=== PATIENT | male | born 1990 | race African-American/Black ===

== ENCOUNTER 2017-06-05 12:39 | Emergency (ER) | payer MEDICAID ==
--- NOTE | 2017-06-05 13:06 | CPEKG ---
Heart Rate: 63 RR Interval: 952 P-R Interval: 136 QRSD Interval: 94 QT Interval: 384 QTC Interval: 394 P [place]: 28 QRS [place]: 59 T Wave [place]: 48 EKG Severity - NORMAL ECG - EKG Impression: SINUS RHYTHM Electronically Signed By: Meredith Lepe 05-Jun-2017 15:04:49
[2017-06-05 13:14] LABS: % IMMATURE GRANULYOCYTES 0.1 % (0.0-1.1); ABSOLUTE IMMATURE GRANULOCYTES 0.01 10^3/uL (0.00-0.10); ADD DIFF? NO; ADD MORPH? NO; ADD SCAN? NO; ATYPICAL LYMPHOCYTE FLAG 0 (0-99); FRAGMENT RBC FLAG 0 (0-99); HEMATOCRIT 51.8 % (40.0-51.0); HEMOGLOBIN 18.2 g/dL (13.7-17.5); LEFT SHIFT FLG 0 (0-99); LIPEMIA HEMOLYSIS FLAG 90 (0-99); MEAN CELL HEMOGLOBIN 31.1 pg (27.9-34.1); MEAN CELL HEMOGLOBIN CONCENTR. 35.1 g/dL (32.4-36.7); MEAN CELL VOLUME 88.4 fL (81.5-99.8); MEAN PLATELET VOLUME 9.5 fL (8.7-11.7); PLATELET CLUMPS FLAG 0 (0-99); PLATELET COUNT 258 10^3/uL (150-400); RED BLOOD CELL COUNT 5.86 10^6/uL (4.40-6.38); RED CELL DISTRIBUTION WIDTH 10.9 % (11.5-15.2)
[2017-06-05 13:32] LABS: ANION GAP 14 mEq/L (8-16); CALCIUM 10.2 mg/dL (8.5-10.4); CARBON DIOXIDE 26 mEq/l (22-31); CHLORIDE 101 mEq/L (97-110); CREATININE 0.9 mg/dL (0.7-1.3); GLOMERULAR FILTRATION RATE > 60; GLUCOSE 81 mg/dL (70-100); POTASSIUM 4.6 mEq/L (3.5-5.2); SODIUM 141 mEq/L (134-144)
[2017-06-05] MEDS ORDERED: MAG HYDROX/AL HYDROX/SIMETH 30 ML UDCUP PO ONE (13:34)
[2017-06-05] MEDS ORDERED: HYOSCYAMINE SULFATE 0.125 MG TAB PO ONE (13:34)
[2017-06-05] MEDS ORDERED: LIDOCAINE 2% VISCOUS 15 ML UDCUP PO ONE (13:34)
--- NOTE | 2017-06-05 13:42 | EDPHY ---
H & P Time Seen by Provider: 06/05/17 12:58 HPI/ROS: CHIEF COMPLAINT: Chest pain HISTORY OF PRESENT ILLNESS: 26-year-old male presents with chest pressure. Last evening, he was out at a bar, had a drink and while drinking had sudden onset of sharp and stabbing central chest pressure, associated with shortness of breath and dizziness. The symptoms waxed and waned throughout the evening, but did not completely resolve. He slept well last night, but awoke with similar chest pain. The chest pain today is constant and described as a moderate pressure. No associated shortness of breath. The pain does not increase with exertion. He denies cocaine or methamphetamine use. No prior similar symptoms. Cardiac risk factors negative. Nonsmoker; no family history; no hypertension, diabetes or hypercholesterolemia. REVIEW OF SYSTEMS: Constitutional: No fever, no recent illness Eyes: No visual changes ENT: No sore throat Respiratory: No cough Gastrointestinal: no vomiting, no abdominal pain Genitourinary: no dysuria Musculoskeletal: No leg pain or swelling Skin: No rash Neurological: No headache, no weakness Psychiatric: No depression Past Medical/Surgical History: Denies Social History: Occasional marijuana Smoking Status: Never smoked Physical Exam: General Appearance: Alert, pleasant Eyes: Pupils equal and round, no conjunctival pallor or injection ENT, Mouth: Mucous membranes moist Neck: Normal inspection Respiratory: Normal respiratory rate, no chest wall tenderness, lungs are clear to auscultation Cardiovascular: Regular rate and rhythm Gastrointestinal: Abdomen is soft and nontender Neurological: A&O, nonfocal, normal gait Skin: Warm and dry, no rash Extremities: Nontender, no pedal edema Psychiatric: Mood and affect normal Constitutional: Initial Vital Signs Temperature (C) 36.9 C 06/05/17 12:47 Heart Rate 76 06/05/17 12:47 Respiratory Rate 16 06/05/17 12:47 Blood Pressure 142/88 H 06/05/17 12:47 O2 Sat (%) 96 06/05/17 12:47 O2 Delivery Mode Room Air Allergies/Adverse Reactions: No Known Allergies Allergy (Verified 06/05/17 12:47) Home Medications: Medication Instructions Recorded NK [No Known Home Meds] 09/01/14 Medical Decision Making - Diagnostics EKG Interpretation: EKG interpreted by me reveals normal sinus rhythm, rate 63, J point elevation, no ST or T segment changes. Imaging Results: Chest x-ray independently reviewed by me reveals no acute disease. ED Course/Re-evaluation: This patient presents with atypical chest pain. After careful consideration and evaluation, I find no evidence of acute coronary syndrome. The patient has no risk factors for coronary disease, normal EKG and normal studies. In addition, I feel that I can safely exclude pulmonary embolism, with normal vital signs, normal oxygen saturation and normal studies. In addition there is no evidence of pneumothorax, pneumonia, aortic dissection. GI cocktail given for possible esophageal spasm; no relief in pain. Likely musculoskeletal etiology of pain. Toradol 15 mg IV given prior to discharge. Patient was strongly encouraged to follow up with his primary care physician. He will return to the emergency department for worsening symptoms or any concerns. Differential Diagnosis: Differential diagnosis includes though it is not limited to pneumonia, pneumothorax, pulmonary embolism, aortic dissection, pericarditis, acute coronary syndrome, GERD, esophagitis. - Data Points Laboratory Results: Laboratory Results 06/05/17 13:00 06/05/17 13:00 Medications Given: Discontinued Medications Al Hydroxide/Mg Hydroxide (Maalox Susp) 30 ml PO ONCE ONE Stop: 06/05/17 13:35 Last Admin: 06/05/17 13:39 Dose: 30 ml Hyoscyamine Sulfate (Levsin, Hyomax-Sl) 0.25 mg PO ONCE ONE Stop: 06/05/17 13:35 Last Admin: 06/05/17 13:39 Dose: 0.25 mg Ketorolac Tromethamine (Toradol) 15 mg IVP EDNOW ONE Stop: 06/05/17 14:09 Last Admin: 06/05/17 14:20 Dose: 15 mg Lidocaine (Lidocaine 2% Viscous) 15 ml PO ONCE ONE Stop: 06/05/17 13:35 Last Admin: 06/05/17 13:39 Dose: 15 ml Departure - Departure Disposition: Home, Routine, Self-Care Clinical Impression: Chest pain Qualifiers: Chest pain type: precordial pain Qualified Code(s): R07.2 - Precordial pain Condition: Good Instructions: Chest Pain (ED) Additional Instructions: Ibuprofen 600 mg 3 times daily while the pain persists. Return for worsening pain, shortness of breath or any concerns. Referrals: John García MD [Medical Doctor] - 2-3 days, call for appt.
[2017-06-05] MEDS ORDERED: KETOROLAC 15 MG/1 ML SDV IVP ONE (14:08)
[2017-06-05 15:01] VITALS: BP 119/79; PULSE 64; RESP 18; TEMP 98.8; O2SAT 94
== END 2017-06-05 15:03 | disposition home or self-care (01) ==
DX: R07.2 Precordial pain (principal)
CPT/HCPCS: 96374; J1885

== ENCOUNTER 2017-06-13 21:54 | Inpatient (IN) | payer MEDICAID ==
--- NOTE | 2017-06-13 22:05 | EDPHY ---
H & P - Personal History Tetanus Vaccine Date: 2011 - Medical/Surgical History Hx Asthma: No Hx Chronic Respiratory Disease: No Hx Diabetes: No Hx Cardiac Disease: No Hx Renal Disease: No Hx Cirrhosis: No Hx Alcoholism: No Hx HIV/AIDS: No Hx Splenectomy or Spleen Trauma: No Other PMH: denies - Social History Smoking Status: Never smoked HPI/ROS: Chief Complaint: Intentional overdose HPI: A 26-year-old male states that he took about 27, 30 mg Percocet tablets as well as some Xanax as a suicide attempt tonight. Patient states he was trying to "end some pain ". He does state he has a history of a suicide attempt in the past. Denies any other ingestions. On EMS arrival patient was awake and alert. During the course of transport patient became more somnolent and had a brief apneic episode. He received 0.5 mg of naloxone IV EN route. He is now awake alert and answering questions. Denies past medical history. No recent injuries or traumas. ROS: 10 point Review of Systems is negative except as noted in the HPI. PMH: Denies Social History: No smoking, occasional alcohol, occasional marijuana Family History: non-contributory Physical Exam: Gen: Awake, drowsy, maintaining airway HEENT: Nose: no rhinorrhea Eyes: Pupils are 1-2 mm bilaterally, EOMI Mouth: Moist mucosa Neck: Supple, no JVD Chest: nontender, lungs clear to auscultation Heart: S1, S2 normal, no murmur Abd: Soft, non-tender, no guarding Back: no CVA tenderness, no midline tenderness Ext: no edema, non-tender Skin: no rash Neuro: CN II-XII intact, Sensation grossly intact, Strength 5/5 in bilateral upper and lower extremities (Dominguez Fraser) Constitutional: Initial Vital Signs Heart Rate 99 06/13/17 21:58 Respiratory Rate 10 L 06/13/17 21:58 Blood Pressure 157/87 H 06/13/17 21:58 O2 Sat (%) 99 06/13/17 21:58 O2 Delivery Mode Nasal Cannula O2 (L/minute) 1 Allergies/Adverse Reactions: No Known Allergies Allergy (Verified 06/05/17 12:47) Home Medications: Medication Instructions Recorded NK [No Known Home Meds] 09/01/14 Medical Decision Making ED Course/Re-evaluation: 07:00 I assumed care of this patient from Dr. Fraser at shift change. Patient is on M1 hold, being treated following intentional polypharm overdose. Acetaminophen negative. He has been on Narcan drip, titrated to effectiveness since about 1:00 this morning. Plan to observe, taper Narcan as needed. 08:00 This patient continues to require Narcan drip. He barely rouses to painful stimuli. Plan to admit for continued management. 09:03 Consulted with hospitalist service. Dr. Tsang accepts admission to ICU. (Melissa Carrasco) 26-year-old male with poly forearm ingestion including opiates. Patient has pinpoint pupils. He responded well to Narcan. Will continue to evaluate. Will re-dose Narcan as needed. Patient again somnolent. Every does 0.5 mg of Narcan with good results. Will start him on a Narcan drip at this time to allow him to metabolize his narcotics. Patient has been placed on M1 hold by the police. 0700. Patient signed out to Dr. Carrasco pending improvement in his mental status and mental health evaluation. Narcan drip has been discontinued at this point. (Dominguez Fraser) - Data Points Laboratory Results: Laboratory Results 06/13/17 22:05 06/13/17 22:05 06/14/17 02:10 Total Bilirubin 0.4 mg/dL mg/dL (0.1-1.4) Conjugated Bilirubin 0.2 mg/dL mg/dL (0.0-0.5) Unconjugated Bilirubin 0.2 mg/dL mg/dL (0.0-1.1) AST 23 IU/L IU/L (17-59) ALT 38 IU/L IU/L (21-72) Alkaline Phosphatase 44 IU/L IU/L (38-126) Creatine Kinase 114 IU/L IU/L (0-224) Total Protein 6.0 g/dL L g/dL (6.3-8.2) Albumin 3.3 g/dL L g/dL (3.5-5.0) Medications Given: Chlorhexidine Gluconate (Peridex) 15 ml PO Q12@08,20 JULIO Stop: 12/11/17 19:59 Last Admin: 06/14/17 19:55 Dose: 15 ml Naloxone HCl 4 mg/ Sodium (Chloride) 250 mls @ 0 mls/hr IV CONT JULIO; Per Protocol PRN Reason: Protocol Stop: 12/11/17 14:59 Last Admin: 06/14/17 15:26 Dose: 250 mls Famotidine/Sodium Chloride (Pepcid 20 Mg (Premix)) 50 mls @ 200 mls/hr IV Q12HRS JULIO Stop: 12/11/17 20:59 Last Admin: 06/14/17 20:05 Dose: 50 mls Discontinued Medications Flumazenil (Romazicon) 0.2 mg IVP ONCE ONE Stop: 06/14/17 10:48 Last Admin: 06/14/17 10:59 Dose: 0.2 mg Flumazenil (Romazicon) 0.3 mg IVP ONCE ONE Stop: 06/14/17 17:42 Last Admin: 06/14/17 18:17 Dose: 0.3 mg Naloxone HCl 2 mg/ Dextrose 505 mls @ 0 mls/hr IV EDNOW ONE; Per Protocol PRN Reason: Protocol Stop: 06/13/17 23:31 Last Admin: 06/13/17 23:22 Dose: 505 mls Naloxone HCl 2 mg/ Dextrose 505 mls @ 0 mls/hr IV CONT JULIO; Per Protocol PRN Reason: Protocol Stop: 12/11/17 00:59 Last Admin: 06/14/17 13:39 Dose: 505 mls Sodium Chloride (Ns) 1,000 mls @ 3,000 mls/hr IV ONCE ONE Stop: 06/14/17 11:18 Last Admin: 06/14/17 11:00 Dose: 1,000 mls Naloxone HCl (Narcan) 0.5 mg IVP EDNOW ONE Stop: 06/13/17 22:36 Last Admin: 06/13/17 22:35 Dose: 0.5 mg Departure - Departure Disposition: [facility] Clinical Impression: Intentional opiate overdose Qualifiers: Encounter type: initial encounter Qualified Code(s): T40.602A - Poisoning by unspecified narcotics, intentional self-harm, initial encounter Condition: Serious
--- NOTE | 2017-06-13 22:06 | CPEKG ---
Heart Rate: 81 RR Interval: 741 P-R Interval: 148 QRSD Interval: 88 QT Interval: 336 QTC Interval: 390 P [place]: 51 QRS [place]: 51 T Wave [place]: 52 EKG Severity - NORMAL ECG - EKG Impression: SINUS RHYTHM Electronically Signed By: Dominguez Fraser 14-Jun-2017 06:35:52
[2017-06-13 22:14] LABS: % IMMATURE GRANULYOCYTES 0.2 % (0.0-1.1); ABSOLUTE IMMATURE GRANULOCYTES 0.02 10^3/uL (0.00-0.10); ADD DIFF? NO; ADD MORPH? NO; ADD SCAN? NO; ATYPICAL LYMPHOCYTE FLAG 0 (0-99); FRAGMENT RBC FLAG 0 (0-99); HEMATOCRIT 49.6 % (40.0-51.0); HEMOGLOBIN 17.4 g/dL (13.7-17.5); LEFT SHIFT FLG 0 (0-99); LIPEMIA HEMOLYSIS FLAG 90 (0-99); MEAN CELL HEMOGLOBIN 30.7 pg (27.9-34.1); MEAN CELL HEMOGLOBIN CONCENTR. 35.1 g/dL (32.4-36.7); MEAN CELL VOLUME 87.5 fL (81.5-99.8); MEAN PLATELET VOLUME 9.2 fL (8.7-11.7); PLATELET CLUMPS FLAG 10 (0-99); PLATELET COUNT 253 10^3/uL (150-400); RED BLOOD CELL COUNT 5.67 10^6/uL (4.40-6.38)
[2017-06-13 22:29] LABS: ANION GAP 15 mEq/L (8-16); CALCIUM 9.6 mg/dL (8.5-10.4); CARBON DIOXIDE 26 mEq/l (22-31); CHLORIDE 101 mEq/L (97-110); CREATININE 1.2 mg/dL (0.7-1.3); ETHANOL SERUM < 10 mg/dL (0-10); GLOMERULAR FILTRATION RATE > 60; GLUCOSE 114 mg/dL (70-100); POTASSIUM 4.1 mEq/L (3.5-5.2); SALICYLATE < 1.0 mg/dL (2.0-20.0); SODIUM 142 mEq/L (134-144)
[2017-06-13] MEDS ORDERED: NALOXONE HCL 0.4 MG/ML INJ ONE (22:34)
[2017-06-13] MEDS ORDERED: NALOXONE HCL 0.4 MG/ML INJ IVP ONE (22:35)
[2017-06-13] MEDS ORDERED: NALOXONE HCL 2 MG in D5W 500 ML IV SCH (22:45)
[2017-06-13] MEDS ORDERED: NALOXONE HCL 2 MG in D5W 500 ML IV ONE (23:30)
[2017-06-14] MEDS: NALOXONE HCL 2 MG in D5W 500 ML IV SCH ×2 (05:43→13:39)
[2017-06-14] MEDS ORDERED: ONDANSETRON 4 MG/2 ML VIAL IVP PRN (09:13)
[2017-06-14] MEDS ORDERED: ACETAMINOPHEN 325 MG TAB PO PRN (09:13)
[2017-06-14] MEDS ORDERED: ONDANSETRON DISINTEGRATING 4 MG TAB PO PRN (09:13)
[2017-06-14 09:18] LABS: BASE EXCESS 0.4 mEq/L (-2.5-2.5); BICARBONATE 28 mEq/L (22-26); MEASURED OXYGEN SATURATION 97 % (92-95); PCO2 56 mmHg (34-38); PO2 95 mmHg (65-75); TCO2 29 mEq/L (23-27)
[2017-06-14] MEDS ORDERED: FLUMAZENIL 0.5 MG/5 ML MDV IVP ONE ×2 (10:47→17:41)
[2017-06-14] MEDS ORDERED: NS 1,000 ML IV ONE (10:59)
--- NOTE | 2017-06-14 11:21 | GHP ---
[f rep st] HISTORY AND PHYSICAL DATE OF ADMISSION: 06/14/2017 CHIEF COMPLAINT: Opioid overdose. HISTORY OF PRESENT ILLNESS: A 26-year-old male who presented to the emergency department on 06/13/2017 by EMS. Patient reportedly intentionally took 27 narcotic containing tablets, we believe were Percocet, as well as some Xanax. Patient additionally took Xanax. He reports to the emergency department, on initial evaluation, that he intentionally took these tablets to end the pain. Upon arrival to the intensive care unit, patient denies any headache. Reports feeling very sleepy. Denies vision changes. Denies chest pain, shortness of breath. Does report stomach upset. No vomiting. Denies dysuria, hematuria, myalgias, or arthralgias. PAST MEDICAL HISTORY: None. SOCIAL HISTORY: Patient endorses alcohol use, which occasionally is daily. Denies tobacco. Denies illicit drugs. Reports marijuana use. FAMILY HISTORY: He reports is negative for depression or suicide attempts. REVIEW OF SYSTEMS: A 10-point review of systems is negative with the exception of that reported in the HPI. PHYSICAL EXAMINATION: VITAL SIGNS: Blood pressure 110/69, heart rate 61, respiratory rate 9, saturating 98% on 1 L, 36.3. GENERAL: This is a young healthy-appearing male, quite somnolent on examination. HEENT: Notable for dry mucous membranes. Eye exam is negative for any icterus. CARDIAC: Patient is regular rate and rhythm. PULMONARY: Diminished breath sounds at the bases, otherwise clear. GASTROINTESTINAL: Positive bowel sounds. ABDOMEN: Soft and nontender. MUSCULOSKELETAL: Negative for any lower extremity edema. SKIN: Negative for any rashes. NEUROLOGIC: The patient is arousable and will answer questions but immediately falls back asleep. PSYCHIATRIC: Has a flat affect on my examination. DATA: White count 10.0, hematocrit 49.5, platelets of 253. Creatinine of 1.2, recent baseline 0.9. Salicylates are less than 1. Acetaminophen less than 10, rechecked at 4 hours remained less than 10. EKG, which I personally reviewed and interpreted, shows sinus rhythm. Normal axis. Normal intervals. RSR prime morphology V1, V2. No acute ST-T changes. EKG from 06/05 in comparison is similar. ASSESSMENT AND PLAN: This is a 26-year-old male with intentional opioid overdose. 1. Intentional suicide attempt. Patient does have a history of depression in the past with reported previous attempts. M1 hold has been placed in the emergency department. Will medically stabilized and then consult Psychiatry for additional psychiatric care. 2. Opioid overdose. Patient is currently on a Narcan drip. Remains quite somnolent with low respiratory rates. Patient reportedly took Xanax, although we do not know quantity ingested. Will use a single dose of flumazenil to see if we can improve his somnolence and unresponsiveness. Patient will remain on IV fluids while unsafe to take p.o. Will additionally check another Tylenol level this afternoon, as again, we cannot quantify exactly what tablets or how many he took. 3. CHANEL - creatinine 1.2 (baseline 0.9) suspect secondary to hypovolemia- NS bolus and follow. 4. Prophylaxis with Lovenox. DIET: N.p.o. currently as the patient is unsafe to swallow. DISPOSITION: I expect greater than 2 midnights. Patient is requiring a Narcan drip currently to maintain a normal respiratory rate. Will require ICU level monitoring prior to psych evaluation. Discussed the case with the emergency room physician. Patient will be triaged to the ICU for care. /[id number]/MODL MTDD
--- NOTE | 2017-06-14 12:58 | ASMTCMCOM ---
CM Note CM Note Notes: 26 year old male admitted for suicide attempt intentional opioid OD. Has a hx of Depression and other suicide attempts. Patient's mother contacted and coming from [place]. Patient made the remark that he "wanted to end the pain". Not sure if that's physical or emotional pain? Patient will have a psych eval when medically cleared. Patient placed on an M1 Hold. Date Signed: 06/14/2017 12:58 PM Electronically Signed By:Batool Escudero LCSW
[2017-06-14] MEDS ORDERED: NS IV SCH ×2 (15:00)
[2017-06-14] MEDS ORDERED: NALOXONE HCL IV SCH ×2 (15:00)
[2017-06-14 15:18] LABS: ALBUMIN 3.3 g/dL (3.5-5.0); BILIRUBIN,TOTAL 0.4 mg/dL (0.1-1.4); BILIRUBIN-CONJUGATED 0.2 mg/dL (0.0-0.5); BILIRUBIN-UNCONJUGATED 0.2 mg/dL (0.0-1.1)
[2017-06-14 15:31] LABS: PHENCYCLIDINE URINE BCH < 6 ng/ml (NEGATIVE); PHENCYCLIDINE URINE BCH NEGATIVE (NEGATIVE); TETRAHYDROCANNABINOL URINE 40 ng/mL (NEGATIVE); TETRAHYDROCANNABINOL URINE NEGATIVE (NEGATIVE)
--- NOTE | 2017-06-14 16:05 | PDMN ---
Medical Necessity Medical necessity: Pt meets IP criteria per MD; est los >2 mn for ongoing management/tx of intentional suicide attempt/opioid overdose & CHANEL; admit to ICU for Narcan drip, IVFs, further monitoring & Psychiatric consult; hx depression; per H&P & order 06/14/17
[2017-06-14] MEDS ORDERED: PROPOFOL/EMULSION 1,000 MG/100 ML BOTTLE IV ONE (17:55)
[2017-06-14] MEDS: D5W NS 1,000 ML IV SCH (19:00)
--- NOTE | 2017-06-14 19:27 | HOSPPROG ---
Hospitalist Progress Note Assessment/Plan: CAlled bedside for critical respiratory condition - nursing reporting progressive somnolence with a marked depression in respiratory rate Nurse initiated bag/mask ventilation without resistance - BiPAP initiated RR 16 (set on BiPAP - saturation 100% BP 110/70 (60's) patient not responding to noxious stimulation RRR lung littlejohn clear to auscultation # Acute Respiratory distress presumed 2/2 respiratory depression with opiod overdose- narcan cady has been uptitrated throught the day without improvement - stat dose of flumazenil - ED called for emergent intubation - continue narcan gtt - mother contacted for emergency consent for ETT # Opiod/benzodiazepine overdose - remains unclear exactly what the patient took and what quantity - breif response to flumazenil - however continue use has risk of seizure - cont narcan - proceed with airway protection > 30 minutes bedside critical care time spent - active bedside critical care subsequently handed off to Objective: Vital Signs Temp Pulse Resp BP Pulse Ox 36.7 C 56 L 12 110/70 100 06/14/17 16:00 06/14/17 18:00 06/14/17 18:00 06/14/17 18:00 06/14/17 18:00 06/13/17 06/14/17 06/15/17 05:59 05:59 05:59 Intake Total 2058 Output Total 3236 Balance 159 ICD10 Worksheet Patient Problems: Problems Problem Status Onset Intentional opiate overdose Acute Chest pain Acute
[2017-06-14] MEDS: CHLORHEXIDINE GLUCONATE 15 ML UDL PO SCH (19:55)
[2017-06-14] MEDS ORDERED: SUCCINYLCHOLINE CHLORIDE*ANESTHESIA ONLY*200 MG/10 ML SYR IVP ONE (20:01)
[2017-06-14] MEDS ORDERED: ETOMIDATE 40 MG/20 ML INJ ONE (20:01)
[2017-06-14] MEDS: FAMOTIDINE 20 MG/NACL 50 ML IV SCH (20:05)
[2017-06-14 20:39] LABS: BASE EXCESS 1.5 mEq/L (-2.5-2.5); BICARBONATE 24 mEq/L (22-26); MEASURED OXYGEN SATURATION 99 % (92-95); PCO2 33 mmHg (34-38); PO2 148 mmHg (65-75); TCO2 25 mEq/L (23-27)
[2017-06-14 20:41] LABS: END TIDAL CO2 33; O2 CONCENTRATIION 50 % (0-100); P/F RATIO 296 RATIO; PATIENT RATE 12; PRESSURE SUPPORT 7; SIMV YES
--- NOTE | 2017-06-14 22:15 | EPPROC ---
Patient Problems: Problems Problem Status Onset Intentional opiate overdose Acute Chest pain Acute
--- NOTE | 2017-06-14 22:18 | EDPHY ---
ED Progress Note Narrative: Indication for the procedure was narcotic and benzodiazepine overdose with pending apnea. The patient was preoxygenated with 100% oxygen by face mask. The patient was sedated with 20 mg of IV etomidate and paralyzed with 200 mg of IV succinylcholine. The patient was orally endotracheally intubated under direct visualization with a 7.5 ETT. Tracheal intubation was confirmed with misting on the tube; breath sounds were auscultated equally bilaterally; appropriate color change with [place] CO2 detector, capnography waveform is appropriate, oxygen saturation after procedure is 100%. Chest X- ray shows ETT in good position. The procedure was performed by myself.
[2017-06-15] MEDS: PROPOFOL/EMULSION 100 ML IV SCH ×2 (03:45→21:48)
[2017-06-15 05:51] LABS: % IMMATURE GRANULYOCYTES 0.3 % (0.0-1.1); ABSOLUTE IMMATURE GRANULOCYTES 0.02 10^3/uL (0.00-0.10); ADD DIFF? NO; ADD MORPH? NO; ADD SCAN? NO; ATYPICAL LYMPHOCYTE FLAG 10 (0-99); FRAGMENT RBC FLAG 0 (0-99); HEMATOCRIT 40.7 % (40.0-51.0); HEMOGLOBIN 14.2 g/dL (13.7-17.5); LEFT SHIFT FLG 0 (0-99); LIPEMIA HEMOLYSIS FLAG 90 (0-99); MEAN CELL HEMOGLOBIN 31.2 pg (27.9-34.1); MEAN CELL HEMOGLOBIN CONCENTR. 34.9 g/dL (32.4-36.7); MEAN CELL VOLUME 89.5 fL (81.5-99.8); MEAN PLATELET VOLUME 9.3 fL (8.7-11.7); PLATELET CLUMPS FLAG 0 (0-99); PLATELET COUNT 191 10^3/uL (150-400); RED BLOOD CELL COUNT 4.55 10^6/uL (4.40-6.38); RED CELL DISTRIBUTION WIDTH 11.1 % (11.5-15.2)
[2017-06-15 06:15] LABS: ANION GAP 10 mEq/L (8-16); CALCIUM 8.3 mg/dL (8.5-10.4); CARBON DIOXIDE 22 mEq/l (22-31); CHLORIDE 110 mEq/L (97-110); CREATININE 0.8 mg/dL (0.7-1.3); GLOMERULAR FILTRATION RATE > 60; GLUCOSE 88 mg/dL (70-100); POTASSIUM 3.9 mEq/L (3.5-5.2); SODIUM 142 mEq/L (134-144)
[2017-06-15] MEDS: CHLORHEXIDINE GLUCONATE 15 ML UDL PO SCH ×2 (08:05→19:31)
[2017-06-15] MEDS ORDERED: ENOXAPARIN 40 MG/0.4 ML SYR SC SCH (09:00)
[2017-06-15] MEDS: FAMOTIDINE 20 MG/NACL 50 ML IV SCH ×2 (09:49→19:32)
[2017-06-15] MEDS: ENOXAPARIN 40 MG/0.4 ML SYR SC SCH (09:50)
--- NOTE | 2017-06-15 17:27 | HOSPPROG ---
Hospitalist Progress Note Assessment/Plan: # Acute hypoxic Respiratory failure 2/2 respiratory depression with opiod overdose- pt emergently intubated overnight - tolerating vent oxygen saturaions 100% on 40% Fio2- WBC normal today CXR (personally reviewed and interpreted) no infiltrates - cont ventilator support - dc narcan gtt as vented - does have moments of appropriate communication- hopeful we see improvement today # Opiod/benzodiazepine overdose - remains unclear exactly what the patient took and what quantity - brief response to flumazenil - however continue use has risk of seizure - cont vent support - cont supportive care # CHANEL - resolved after fluids # proph -lovenox, pepcid # diet NPO # dispo - on M1 hold will need psych eval after medically cleared I have discussed the case with RN -it is positive that the patient can follow simple commands on vent - cont supportive care Subjective: intubated overnight Objective: Vital Signs Temp Pulse Resp BP Pulse Ox 36.5 C 64 8 L 120/71 100 06/15/17 16:00 06/15/17 16:00 06/15/17 16:00 06/15/17 16:00 06/15/17 16:00 Laboratory Results 06/15/17 05:35 06/15/17 05:35 06/14/17 06/15/17 06/16/17 05:59 05:59 05:59 Intake Total 2973.1 Output Total 2275 325 Balance 698.1 -325 - Physical Exam Constitutional: appears nourished Eyes: anicteric sclera Ears, Nose, Mouth, Throat: other (ETT) Cardiovascular: regular rate and rhythym Respiratory: no respiratory distress Gastrointestinal: normoactive bowel sounds Genitourinary: no bladder fullness Skin: warm Musculoskeletal: No asymmetric calves Neurologic: No AAOx3 Psychiatric: other (sedated) Lymph, Heme, Immunologic: no cervical LAD ICD10 Worksheet Patient Problems: Problems Problem Status Onset Intentional opiate overdose Acute Chest pain Acute
[2017-06-15] MEDS: D5W NS 1,000 ML IV SCH (19:30)
--- NOTE | 2017-06-16 04:40 | GCON ---
[f rep st] CONSULTATION PULMONARY/CRITICAL CARE CONSULTATION DATE OF CONSULTATION: 06/15/2017 REASON FOR CONSULTATION: Drug overdose, acute respiratory failure. HISTORY: The patient is a 26-year-old gentleman, who presented to the emergency room on 06/13, broug ht in by the paramedics. He took a large amount of narcotics, apparently Percocet, as well as Xanax. He had decreased mental status on arrival to the emergency department. He was given Narcan by drip and admitted to the intensive care unit. He remained quite somnolent after his admission, and despi te the Narcan drip last night, had a respiratory rate of 4, was not protecting his airway, was increa singly somnolent, and was thus intubated by the ED physician. Because of the Xanax ingestion, he als o was tried on a single dose of Romazicon. He woke up partially, but only momentarily with this. It was not repeated. This was apparently an intentional overdose. He was not down for a long time. His mother was talkin g to him on the phone as he began to lose consciousness. She hung up and called 9-- immediately, a nd the paramedics arrived soon after that. There has been no evidence of anoxia. When he wakes up f rom his stupor at times, he is appropriate, follows commands, etc. This was an intentional suicide o verdose, and he is on an M1 hold. PAST MEDICAL HISTORY: Unremarkable. He apparently has not had previous suicide attempts. SOCIAL HISTORY: Unknown to me at this time. He apparently does drink alcohol occasionally, but not necessarily daily. Apparently illegal drug use is denied, however. That appears to be questionable. Does use marijuana. Employment status, school, etc., are unknown at this time. PHYSICAL EXAMINATION: GENERAL: Reveals a gentleman who is on the ventilator. He appears comfortabl e. He does wake up and responds to commands and questions. He is not over breathing the ventilator, which is set at 8. VITAL SIGNS: Blood pressure is approximately 120/70, heart rate 65 with sinus r hythm on the monitor. He is afebrile. On 40% FIO2, he is 100% saturated. Respiratory rate is 8. H EENT: Remarkable for the oral endotracheal tube. He has no NG/OG at this time. CHEST: Clear bilat erally. HEART: Regular in rate and rhythm. ABDOMEN: Soft, nontender. Bowel sounds are present. EXTREMITIES: Unremarkable for edema, cords, or tenderness. A Ochoa catheter is in place. Urine out put is good. NEUROLOGIC: Nonfocal. He moves all extremities equally to commands, answers simple qu estions. DATABASE: Chest x-ray post intubation shows no infiltrates. Endotracheal tube is in good position. Laboratory: Arterial blood gas post intubation showed a pH of 7.48, pCO2 of 33, and pO2 of 148, on r ate of 12, 600, and 5 of PEEP. White blood cell count 7500, hematocrit 40.7, platelets are normal. Chemistries are within normal limits, as are liver function studies. Urine tox screen on admission w as positive for benzodiazepines, otherwise, negative, including opiates, acetaminophen, salicylates, THC, and alcohol. ASSESSMENT: 1. Polysubstance overdose: He apparently took a large amount of opiates, possibly Percocet, possibl y other opiates? He also took Xanax, amount unknown. This has resulted in prolonged somnolence. Th ere is no evidence of an anoxic injury, fortunately. Because of persistent somnolence and a decreasi ng respiratory rate, he was intubated and remains on the ventilator. 2. Acute respiratory failure secondary to drug overdose: Please see the comments above. He is stab le on the ventilator, not over breathing the vent with a respiratory rate set at 8. 3. Suicide attempt: He is on an M1 hold. 4. Metabolic: No issues identified. 5. Prophylaxis: He is on enoxaparin and famotidine. PLAN AND RECOMMENDATIONS: The patient will be kept in the intensive care unit. Ventilatory support will be maintained until he improves enough and starts over breathing the ventilator, does not fall b ack asleep, etc. His M1 hold will be maintained. Laboratory will be followed. Further plans and recommendations will be made based on his progress over the next 12-24 hours. /[id number]/MODL
[2017-06-16 06:09] LABS: HEMATOCRIT 39.5 % (40.0-51.0); HEMOGLOBIN 13.5 g/dL (13.7-17.5); MEAN CELL HEMOGLOBIN 30.3 pg (27.9-34.1); MEAN CELL HEMOGLOBIN CONCENTR. 34.2 g/dL (32.4-36.7); MEAN CELL VOLUME 88.8 fL (81.5-99.8); RED BLOOD CELL COUNT 4.45 10^6/uL (4.40-6.38); RED CELL DISTRIBUTION WIDTH 10.7 % (11.5-15.2)
[2017-06-16] MEDS: CHLORHEXIDINE GLUCONATE 15 ML UDL PO SCH (10:49)
[2017-06-16] MEDS: FAMOTIDINE 20 MG/NACL 50 ML IV SCH (10:50)
--- NOTE | 2017-06-16 11:22 | ASMTCMCOM ---
CM Note CM Note Notes: A question re: a 24 hour wait after extubation to med clear a patient for psych eval came up in rounds. Spoke with DIPIKA Urena, who states there are no requirements like this and the can determine patient med clear without a 24 hour wait after extubation. Patient's nurse was informed. Patient was extubated this morning and will most likely med clear this afternoon. CM will follow. Date Signed: 06/16/2017 11:22 AM Electronically Signed By:Jayleen Thomas LCSW
[2017-06-16] MEDS: ENOXAPARIN 40 MG/0.4 ML SYR SC SCH (11:56)
--- NOTE | 2017-06-16 13:48 | HOSPPROG ---
Hospitalist Progress Note Assessment/Plan: # Acute hypoxic Respiratory failure 2/2 respiratory depression with opioid overdose- pt emergently intubated 06/14 - oxygen saturations 100% on 40% Fio2- WBC normal today CXR (personally reviewed and interpreted) no infiltrates - anticipate extubation today # Opiod/benzodiazepine overdose - remains unclear exactly what the patient took and what quantity - brief response to flumazenil - however continue use has risk of seizure - anticipate extubation - psychiatry eval when medically clear # CHANEL - resolved after fluids- creatinine 0.8 # proph -lovenox, pepcid # diet NPO # dispo - on M1 hold will need psych eval after medically cleared I have discussed the case with RN- expect extubation today - will eval for medical clearance after extubated Subjective: no events overnight Objective: Vital Signs Temp Pulse Resp BP Pulse Ox 37.0 C 76 12 124/83 H 89 L 06/16/17 12:00 06/16/17 12:00 06/16/17 12:00 06/16/17 12:00 06/16/17 12:00 Laboratory Results 06/16/17 05:45 06/15/17 05:35 06/15/17 06/16/17 06/17/17 05:59 05:59 05:59 Intake Total 2973.1 1847.7 Output Total 2275 1300 200 Balance 698.1 547.7 -200 - Physical Exam Constitutional: appears nourished Eyes: anicteric sclera Ears, Nose, Mouth, Throat: moist mucous membranes Cardiovascular: regular rate and rhythym Respiratory: No expiratory wheeze Gastrointestinal: normoactive bowel sounds Genitourinary: no bladder fullness Skin: warm Musculoskeletal: No asymmetric calves Neurologic: No AAOx3 Psychiatric: No agitated Lymph, Heme, Immunologic: no cervical LAD ICD10 Worksheet Patient Problems: Problems Problem Status Onset Intentional opiate overdose Acute Chest pain Acute
--- NOTE | 2017-06-16 15:27 | PDINTPN ---
Editor Index Progress Note Assessment/Plan: Assessment: Polysubstance overdose, including narcotics and benzodiazepines. Slow to wake up. Acute respiratory failure. Secondary to sedative affective drugs. Was intubated secondary to respiratory rate of 4. This is resolving, is now over breathing the ventilator and can be extubated. Suicide attempt: On M1 hold. Metabolic: No issues identified. DVT prophylaxis: On Lovenox. GI prophylaxis: Eating. Plan: The patient will be/was extubated early this morning and is doing well off the ventilator. However, he remains lethargic/sleepy and will need continued observation at least through today. Hopefully tomorrow he can be medically cleared. No other significant issues are identified. 25 min of clinic time spent directly with the patient. Discussed with the patient's mother, respiratory, nursing, hospitalist. Subjective: More alert today, over breathing the ventilator at approximately 12. However he will fall back asleep, become somewhat somnolent. Objective: Vital Signs Temp Pulse Resp BP Pulse Ox 37.0 C 79 17 132/93 H 99 06/16/17 12:00 06/16/17 14:00 06/16/17 14:00 06/16/17 14:00 06/16/17 14:00 Laboratory Results 06/16/17 05:45 06/15/17 05:35 06/15/17 06/16/17 06/17/17 05:59 05:59 05:59 Intake Total 2973.1 1847.7 Output Total 2275 1300 200 Balance 698.1 547.7 -200 Physical Exam - Physical Exam General Appearance: other (Arouses, responds but remains lethargic, will fall back to sleep) EENT: PERRL/EOMI, ET tube Neck: normal inspection (No JVD) Respiratory: lungs clear (Bilaterally), normal breath sounds, other (Able to take a deep breath, good weaning parameters) Cardiac/Chest: regular rate, rhythm Abdomen: normal bowel sounds, non-tender, soft Skin: normal color, warm/dry Extremities: No pedal edema Neuro/Psych: no motor/sensory deficits (Moves all extremities equally), cognition abnormalities (Remains lethargic but responds appropriately to commands, questions when aroused.) ICD10 Worksheet Patient Problems: Problems Problem Status Onset Chest pain Acute Intentional opiate overdose Acute
[2017-06-16] MEDS ORDERED: PHENOL 177 ML THROAT SPRAY PO PRN (20:43)
[2017-06-17 00:57] VITALS: RESP 18; O2SAT 95
[2017-06-17 07:58] VITALS: BP 119/67; PULSE 65; TEMP 97.7
[2017-06-17] MEDS: ENOXAPARIN 40 MG/0.4 ML SYR SC SCH (10:24)
--- NOTE | 2017-06-17 14:41 | ASMTCMCOM ---
CM Note CM Note Notes: Met with patient's mother, Sol, and her sister Jael re: some miscommunication. Explained the process for psychiatric evaluation and the timeline that goes with [facility] doing the evaluation. Answered questions about visitors and why this has to be monitored. Explained the ambulance transport if [facility] decides to hospitalize the patient in a behavioral health unit. The 72 hour hold and extension of the 72 hour hold was explained as well. This meeting was to support the family and answer their questions and address the confusion that arose around the topics mentioned above. CM available if further needs arise. Date Signed: 06/17/2017 02:40 PM Electronically Signed By:Jayleen Thomas LCSW
--- NOTE | 2017-06-17 16:26 | PDINTPN ---
Disassembler Progress Note Assessment/Plan: Assessment: Polysubstance overdose, including narcotics and benzodiazepines. Resolved Acute respiratory failure. Resolved Suicide attempt: No longer suicidal, no longer an issue. Seen by [facility]. Metabolic: No issues identified. Medically cleared: Ready for discharge. Plan: The patient is now medically clear. He has been seen by [facility] and they have cleared him to be released to go home with his family. They felt that he was not a danger to himself or to others. They felt that no follow-up with [facility] need to be arranged. The hold that he was placed on is now lifted. The date and time that I lifted the hold is 16:23. Subjective: Doing well. Denies complaints. Not short of breath. Breathing fine. Oriented x3. No longer feels he is suicidal. He felt overwhelmed by a issues that led him to take his overdose. He states to me that he was not necessarily trying to kill of self, only relieved himself from his pressures transiently. Objective: Vital Signs Temp Pulse Resp BP Pulse Ox 36.5 C 65 18 119/67 95 06/17/17 07:52 06/17/17 07:52 06/17/17 07:52 06/17/17 07:52 06/17/17 07:52 Laboratory Results 06/16/17 05:45 06/15/17 05:35 06/16/17 06/17/17 06/18/17 05:59 05:59 05:59 Intake Total 1847.7 1250 Output Total 1300 200 Balance 547.7 1050 Physical Exam - Physical Exam General Appearance: alert EENT: PERRL/EOMI Neck: normal inspection Respiratory: lungs clear, normal breath sounds Cardiac/Chest: regular rate, rhythm Abdomen: normal bowel sounds, non-tender, soft Skin: normal color, warm/dry Extremities: No pedal edema Neuro/Psych: no motor/sensory deficits, No cognition abnormalities ICD10 Worksheet Patient Problems: Problems Problem Status Onset Chest pain Acute Intentional opiate overdose Acute
--- NOTE | 2017-06-18 04:54 | GDS ---
[f rep st] DISCHARGE SUMMARY DISCHARGE DIAGNOSES: 1. Narcotic overdose. 2. Acute respiratory failure due to respiratory depression from opioids. 3. Suicide attempt. HISTORY: The patient is a 26-year-old male who took Percocet and some possible Xanax in a suicide at tempt due to a break-up with a girlfriend. He did go into respiratory failure requiring brief intuba tion but he was successfully extubated once these drugs wore off. On the day of discharge, he is piedad ke, alert and oriented x3. He was seen by Psychiatry once he was medically cleared and they have dis charged him to outpatient followup and do not think he needs further inpatient psychiatric hospitaliz ation. DISCHARGE MEDICATIONS: Please see computer record for full detailed list. There are no new medicati ons given at time of hospital discharge. ADDITIONAL DISCHARGE INSTRUCTIONS: Outpatient psychiatry followup as recommended by [facility]. Greater than 30 minutes' time was spent arranging this discharge. Patient seen and examined by me on the day of discharge. /[id number]/MODL
== END 2017-06-17 16:30 | disposition home or self-care (01) | DRG 917 ==
LOC: EDUNIT# → F2N 06-14 09:50
PROVIDERS: ADMIT Hospitalist; ATTEND Hospitalist
PROC: 0BH17EZ Insertion of Endotracheal Airway into Trachea, Via Natural or Artificial Opening (ICD-10-PCS; principal; 2017-06-14)
PROC: 5A1945Z Respiratory Ventilation, 24-96 Consecutive Hours (ICD-10-PCS; principal; 2017-06-14)
DX: T40.2X2A Poisoning by other opioids, intentional self-harm, initial encounter (principal); J96.00 Acute respiratory failure, unspecified whether with hypoxia or hypercapnia; T42.4X2A Poisoning by benzodiazepines, intentional self-harm, initial encounter
CPT/HCPCS: 80305; 80307; 96365; 96366; G0480; J0330; J1650; J2310; J2704

== ENCOUNTER 2017-09-07 15:37 | Emergency (ER) | payer MEDICAID ==
[2017-09-07] MEDS ORDERED: NS 1,000 ML IV ONE ×2 (16:14→20:23)
--- NOTE | 2017-09-07 16:20 | EDPHY ---
H & P Smoking Status: Never smoked Time Seen by Provider: 09/07/17 15:58 HPI/ROS: CHIEF COMPLAINT: Altered mental status HISTORY OF PRESENT ILLNESS: 27-year-old male presents to the emergency department by private vehicle medical with altered mental status. His mother brought him into the emergency department today because of weakness. The patient lives with his mother. He is prescribed citalopram for depression. She states that he seemed tired yesterday and she did get him out of bed but then she tried to make him eat around 9:00 p.m. Last night. She states today she was getting him up to take him to an appointment with [facility] for a 1st visit and she states that took nearly 40 min for him to get dressed and get out of bed. The patient has had 2 previous suicide attempts with overdose of medication. In June the patient overdosed on Xanax and opiates. He he ended up in the ICU on a ventilator. Most recently, August 14, the patient overdosed again possibly on Xanax. The patient has a history of depression. He was started on citalopram a few weeks ago after the 2nd suicide attempt. Patient states he is not suicidal or homicidal. Initially the patient states that he did not ingest any other medication however upon further questioning the patient does report that he took some Xanax. He does not remember when. He thinks this was yesterday although he is confused on time. He denies alcohol use. He does smoke marijuana occasionally. There has been no reported trauma. He denies auditory or visual hallucinations. Currently has no pain in his chest or difficulty breathing. Denies abdominal pain or vomiting or diarrhea. He says he feels "foggy and out of it". REVIEW OF SYSTEMS: Constitutional: No fever, no chills. Eyes: No double or blurry vision. ENT: No sore throat. Respiratory: No cough, no shortness of breath. Cardiac: No chest pain. Gastrointestinal: No abdominal pain, vomiting or diarrhea. Genitourinary: No dysuria. Musculoskeletal: No neck or back pain. Skin: No rashes. Neurological: No headache. (Latricia Smyth) Past Medical/Surgical History: Depression, suicide attempt by overdose in June of 2017 and August of 2017 (Latricia Smyth) Social History: Single and lives with his mother in [place] (Latricia Smyth) Physical Exam: General Appearance: Lethargic. No signs of trauma to his head. He is afebrile. Vital signs are stable. Eyes: Pupils equal and round. Extraocular motions are all intact. ENT: Mouth: Mucous membranes appears dry. Diminished gag reflex. Respiratory: No wheezing, rhonchi, or rales, lungs are clear to auscultation. Cardiovascular: Regular rate and rhythm. Gastrointestinal: Abdomen is soft and nontender, no masses, no rebound or guarding, bowel sounds normal. Neurological: Alert and oriented x 2, confused on date and time otherwise cranial nerves II through XII grossly intact Skin: Warm and dry, no rashes. Musculoskeletal: Nontender to palpate along the cervical, thoracic or lumbar spine. Neck is supple. Extremities: Full range of motion and no peripheral edema. Psychiatric: no agitation. (Latricia Smyth) Constitutional: Initial Vital Signs Temperature (C) 37.1 C 09/07/17 15:46 Heart Rate 75 09/07/17 15:46 Respiratory Rate 17 09/07/17 15:46 Blood Pressure 127/93 H 09/07/17 15:46 O2 Sat (%) 92 09/07/17 15:46 O2 Delivery Mode Room Air O2 (L/minute) 2 Allergies/Adverse Reactions: No Known Allergies Allergy (Verified 06/05/17 12:47) Home Medications: Medication Instructions Recorded Citalopram 09/07/17 Medical Decision Making - Diagnostics Imaging: Discussed imaging studies w/ outpatient pharmacy manager Radiologist - Diagnostics EKG Interpretation: EKG: Complete interpretation has been separately recorded in the [employer] archive. Summary impression: Sinus rhythm (Santos Eckert) ED Course/Re-evaluation: I evaluated and participated in the management of the patient. I also evaluated the patient independently. My co-signature indicates that I have reviewed this chart and I agree with the findings and plan of care as documented. My personal H&P findings include: The patient presents to the ED with a week of altered mental status. He has a history of Xanax overdosing. The patient reportedly has been somnolent and stain in his bed for the entire week. His mother reports that she has been feeding him intermittently throughout the week. The patient is very unclear surrounding his presentation today. He has been admitted for overdose in the past. General Appearance: Somnolent but arousable Eyes: Pupils equal and round no pallor or injection ENT, Mouth: Mucous membranes moist Respiratory: There are no retractions, lungs are clear to auscultation Cardiovascular: Regular rate and rhythm Gastrointestinal: Abdomen is soft and nontender, no masses, bowel sounds normal Neurological: A&O, normal motor function, normal sensory exam, normal cranial nerves Skin: Warm and dry, no rashes Musculoskeletal: Neck is supple nontender Extremities: symmetrical, full range of motion The patient has been placed on an M1 psychiatric hold for grave disability. I am concerned that the patient is taking recreational drugs in excess and is at risk for significant respiratory depression and . He has been hospitalized for overdose in the past. The patient has been procuring Xanax from the street. He was significantly hypoxemic with respiratory depression upon arrival. (Santos Eckert) 27-year-old male presents to the emergency department with altered mental status. He lives with his mother. She notes that yesterday he was in bed all day. She tried to force him to eat last night around 9:00 p.m. And noticed that he was very groggy. Today it took him 40 min to get him up and dressed for his mental health appointment. CT imaging of the brain was normal. Upon further questioning the patient admits to using Xanax. He states that he buys this off the street. He does not know the last time that he used Xanax. He did overdose on Xanax nearly 1 month ago and then was taken to longterm. Patient states that he is not suicidal homicidal. The patient apparently has had 2 previous suicide attempts by overdose involving Xanax. The patient admits to using Xanax however he does not remember when he last took this. Laboratory studies are pending. When the patient is medically cleared and conversational, he will be evaluated by mental health. His mother is at bedside. Patient was kept on a monitor. He did require supplemental oxygen. He is very somnolent. He did initially have a decreased gag reflex. 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 Laboratory studies were normal with exception of tox screen positive for Benzodiazepines. The patient has previous history of drug overdose. When the patient is more alert and conversational, he will be evaluated by mental health. Dr. Clement Eckert put the patient on an M1 hold. (Haja,Latricia M) [id number]: No acute events overnight patient has been resting. Patient on M1 hold. Patient signed over to Dr. Rocha at 7am shift-change. (Wilian Welch) 3:00 p.m. patient is stable. He has been stable on my shift. He is awaiting evaluation by [facility]. (Saul Rocha) 5:45 p.m. the patient has been evaluated. They plan to admit and will keep him on the hold. They will attempt to admit to a dual diagnosis facility or [address] [place] [id number]. 11:00 p.m. the patient was accepted at [facility] Dr. Brito. I will complete transfer paperwork. (Chaitanya Wheeler) Differential Diagnosis: Altered mental status including but not limited to hypoglycemia, infectious process, electrolyte abnormality, head injury and intoxicants. (Latricia Smyth) Other Provider: The patient will be turned over to Dr. Welch at shift change pending psychiatric evaluation. (Santos Eckert) Care Turn Over: Care will be turned over to Dr. Welch for disposition and plan. (Latricia Smyth) Dr. Wheeler at 3:00 p.m. (Saul Rocha) - Data Points Laboratory Results: Laboratory Results 09/07/17 16:05 09/07/17 16:05 Medications Given: Discontinued Medications Sodium Chloride (Ns) 1,000 mls @ 0 mls/hr IV ONCE ONE PRN Reason: Wide Open Stop: 09/07/17 16:15 Last Admin: 09/07/17 16:33 Dose: 1,000 mls Sodium Chloride (Ns) 1,000 mls @ 0 mls/hr IV ONCE ONE PRN Reason: Wide Open Stop: 09/07/17 20:24 Last Admin: 09/07/17 20:26 Dose: 1,000 mls Departure - Departure Disposition: Other Psych, Not [place] Clinical Impression: Overdose Condition: Fair Referrals: NONE *PRIMARY CARE P,. [Primary Care Provider] - As per Instructions
--- NOTE | 2017-09-07 16:30 | CPEKG ---
Heart Rate: 70 RR Interval: 857 P-R Interval: 136 QRSD Interval: 76 QT Interval: 380 QTC Interval: 410 P [place]: 29 QRS [place]: 50 T Wave [place]: 36 EKG Severity - NORMAL ECG - EKG Impression: SINUS RHYTHM Electronically Signed By: Santos Eckert 07-Sep-2017 19:07:36
[2017-09-07 16:31] LABS: PLATELET COUNT 243 10^3/uL (150-400)
[2017-09-08 23:08] VITALS: RESP 20; TEMP 98.1; O2SAT 98
[2017-09-09 00:03] VITALS: BP 140/88; PULSE 80
== END 2017-09-09 00:03 ==
DX: T42.4X1A Poisoning by benzodiazepines, accidental (unintentional), initial encounter (principal)
CPT/HCPCS: 80305; G0480